=== PATIENT | male | born 1975 | race Caucasian/White ===

== ENCOUNTER 2017-02-17 10:34 | Emergency (ER) | payer MEDICAID, OTHER ==
[~2017-02-17 10:34] MED LIST: BACT800T5 PO; CEPH500C3 PO; DICL75 PO; TRAM50 PO
[2017-02-17 10:37] VITALS: BP 124/75; PULSE 61; RESP 18; TEMP 98.7; O2SAT 98
--- NOTE | 2017-02-17 11:07 | PD ---
Physical Exam Time Seen by Provider: 11:05 Narrative 41 y/o male here with throbbing R-sided h/a which started 5 days ago. Seen by PCP yesterday. Vital signs reviewed. Seen at triage desk. Awaiting bed placement. Data Data Last Documented VS Vital Signs Date Time Temp Pulse Resp B/P Pulse Ox O2 Delivery O2 Flow Rate FiO2 02/17/17 10:37 98.7 61 18 124/75 98 Room Air [facility] Medical Record Reviewed: Yes Supervised Visit with JANES: Juan Cruz Feb 17, 2017 11:07
[2017-02-17] MEDS ORDERED: ADDE20 PO (11:29)
[2017-02-17] MEDS ORDERED: ADDE20XR PO (11:29)
--- NOTE | 2017-02-17 12:09 | PD ---
HPI Chief Complaint: Headache Time Seen by Provider: 11:18 Travel History International Travel<30 days: No Contact w/Intl Traveler<30days: No Traveled to known affect area: No History of Present Illness HPI This patient complains of headache. Location is right posterior headache behind the right ear. It's a throbbing quality. He's had it on and off for 4- 5 days. He is not having any fever and no head injury. No thunderclap onset. Symptoms severity is moderate. He saw his primary physician yesterday and has scheduled for literally 1 hour from now a MRI of the brain and an MRA of the nikol[place] of [place]. Severity is moderate PFSH Past Medical History Cancer: No Cardiovascular Problems: No Diminished Hearing: No Endocrine: No Gastrointestinal Disorders: Yes GERD: Yes Genitourinary: No Immune Disorder: No Musculoskeletal: Yes Neurologic: No Psychiatric: No Reproductive: No Respiratory: No Immunizations Current: Yes Tetanus Vaccination: < 5 Years Past Surgical History Appendectomy: Yes Pacemaker: No Other Surgery: Yes (RIGHT HAND 4TH DIGIT) Social History Alcohol Use: Yes (VERY LITTLE) Tobacco Use: No Substance Use: No Allergies-Medications (Allergen,Severity, Reaction): Coded Allergies: Codeine (Verified Allergy, Mild, Insomnia, 09/18/14) *MDRO Multi-Drug Resistant Organism (Verified Allergy, Unknown, 09/18/14) MRSA Reported Meds & Prescriptions Reported Meds & Active Scripts Active Reported Adderall Xr 24 HR (Amphetamine/Dextroamphetamine) 20 Mg Cap 20 Mg PO DAILY Once daily in the morning. Adderall (Amphetamine-Dextroamphetamine) 20 Mg Tab 20 Mg PO DAILY Avoid late evening doses. Space doses at least 4 to 6 hours if more than once/day dosing. Review of Systems General / Constitutional: No: Fever Eyes: No: Visual changes HENT: Positive: Headaches Cardiovascular: No: Chest Pain or Discomfort Respiratory: No: Shortness of Breath Gastrointestinal: No: Abdominal Pain Genitourinary: No: Dysuria Musculoskeletal: No: Pain Skin: No Rash Neurologic: Positive: Headache, No: Weakness Psychiatric: No: Depression Endocrine: No: Polydipsia Hematologic/Lymphatic: No: Easy Bruising Physical Exam Narrative GENERAL: Well-nourished, well-developed patient in no apparent distress. SKIN: Focused skin assessment reveals no rash and nodules. Skin is Warm and dry. HEAD: Atraumatic. Normocephalic. EYES: Pupils equal and round. No scleral icterus. No injection or drainage. ENT: No nasal bleeding or discharge. Mucous membranes pink and moist. NECK: Trachea midline. No JVD. CARDIOVASCULAR: Regular rate and rhythm. No murmur appreciated. RESPIRATORY: No accessory muscle use. Clear to auscultation. Breath sounds equal bilaterally. GASTROINTESTINAL: Abdomen soft, non-tender, nondistended. Hepatic and splenic margins not palpable. MUSCULOSKELETAL: No obvious deformities. No clubbing. No cyanosis. No edema. NEUROLOGICAL: Awake and alert. No obvious cranial nerve deficits. Motor grossly within normal limits. Normal speech. PSYCHIATRIC: Appropriate mood and affect; insight and judgment normal. Data Data Last Documented VS Vital Signs Date Time Temp Pulse Resp B/P Pulse Ox O2 Delivery O2 Flow Rate FiO2 02/17/17 11:21 Room Air 02/17/17 10:37 98.7 61 18 124/75 98 MDM Medical Decision Making Medical Screen Exam Complete: Yes Emergency Medical Condition: Yes Medical Record Reviewed: Yes Differential Diagnosis Differential diagnosis includes migraine, tension headache, cluster headache, meningitis. Narrative Course I have reviewed the patient's electronic medical record. Patient has normal vital signs and a normal exam and at this point is minimally symptomatic He is going to be discharged to go get his outpatient testing done and follow with his primary physician Diagnosis Primary Impression: Headache Qualified Code: R51 - Acute nonintractable headache, unspecified headache type Patient Instructions: General Instructions Departure Forms: Tests/Procedures Additional Instructions: The patient was advised to follow up with their physician and return if they worsen. Med/Other Pt SpecificInfo: Other Disposition: 01 DISCHARGE HOME Condition: Stable Ranjit Mercado MD Feb 17, 2017 12:09
[2017-02-17] MEDS ORDERED: HYDR-3534 PO (17:03)
== END 2017-02-17 12:43 | disposition home or self-care (01) ==
LOC: NEPC 10:34
DX: R51 Headache (principal); K21.9 Gastro-esophageal reflux disease without esophagitis; Z79.899 Other long term (current) drug therapy
CPT/HCPCS: 99281; 99282

== ENCOUNTER 2017-02-17 16:45 | Emergency (ER) | payer OTHER ==
[~2017-02-17 16:45] MED LIST changes: +ADDE20 PO; +ADDE20XR PO
[2017-02-17 16:48] VITALS: BP 129/65; PULSE 66; RESP 16; TEMP 98.4; O2SAT 98
[2017-02-17] MEDS ORDERED: HYDR-3534 PO (17:03)
--- NOTE | 2017-02-17 18:24 | PD ---
HPI Chief Complaint: Headache Time Seen by Provider: 17:03 Travel History International Travel<30 days: No Contact w/Intl Traveler<30days: No Traveled to known affect area: No History of Present Illness HPI This patient was here earlier today complaining of headache. He went to [facility] and had outpatient studies done. He had an MRA of the brain which was normal. He had an MRI of the brain which revealed a abnormal finding is physician office referred him back to the emergency room. Patient has minor headache in the right posterior region at this time. Symptoms severity is mild. Comes are partially alleviated by pain medication. Duration one week PFSH Past Medical History Hx Anticoagulant Therapy: No Cancer: No Cardiovascular Problems: No Diminished Hearing: No Endocrine: No Gastrointestinal Disorders: Yes GERD: Yes Genitourinary: No Immune Disorder: No Musculoskeletal: Yes Neurologic: No Psychiatric: No Reproductive: No Respiratory: No Immunizations Current: Yes Tetanus Vaccination: < 5 Years Influenza Vaccination: No Past Surgical History Appendectomy: Yes Pacemaker: No Other Surgery: Yes (RIGHT HAND 4TH DIGIT) Social History Alcohol Use: Yes (VERY LITTLE) Tobacco Use: No Substance Use: No Allergies-Medications (Allergen,Severity, Reaction): Coded Allergies: Codeine (Verified Allergy, Mild, Insomnia, 02/17/17) *MDRO Multi-Drug Resistant Organism (Verified Allergy, Unknown, 02/17/17) MRSA Reported Meds & Prescriptions Reported Meds & Active Scripts Active Reported Lortab (Hydrocodone-Acetaminophen) 7.5-325 Mg Tab 1 Tab PO Q4H PRN Adderall Xr 24 HR (Amphetamine/Dextroamphetamine) 20 Mg Cap 20 Mg PO DAILY Once daily in the morning. Review of Systems General / Constitutional: No: Fever Eyes: No: Visual changes HENT: Positive: Headaches Cardiovascular: No: Chest Pain or Discomfort Respiratory: No: Shortness of Breath Gastrointestinal: No: Abdominal Pain Genitourinary: No: Dysuria Musculoskeletal: No: Pain Skin: No Rash Neurologic: Positive: Headache, No: Weakness Psychiatric: No: Depression Endocrine: No: Polydipsia Hematologic/Lymphatic: No: Easy Bruising Physical Exam Narrative GENERAL: Well-nourished, well-developed patient in no apparent distress. SKIN: Focused skin assessment reveals no rash and nodules. Skin is Warm and dry. HEAD: Atraumatic. Normocephalic. EYES: Pupils equal and round. No scleral icterus. No injection or drainage. ENT: No nasal bleeding or discharge. Mucous membranes pink and moist. NECK: Trachea midline. No JVD. CARDIOVASCULAR: Regular rate and rhythm. No murmur appreciated. RESPIRATORY: No accessory muscle use. Clear to auscultation. Breath sounds equal bilaterally. GASTROINTESTINAL: Abdomen soft, non-tender, nondistended. Hepatic and splenic margins not palpable. MUSCULOSKELETAL: No obvious deformities. No clubbing. No cyanosis. No edema. NEUROLOGICAL: Awake and alert. No obvious cranial nerve deficits. Motor grossly within normal limits. Normal speech. PSYCHIATRIC: Appropriate mood and affect; insight and judgment normal. Data Data Last Documented VS Vital Signs Date Time Temp Pulse Resp B/P Pulse Ox O2 Delivery O2 Flow Rate FiO2 02/17/17 16:48 98.4 66 16 129/65 98 Room Air MDM Medical Decision Making Medical Screen Exam Complete: Yes Emergency Medical Condition: Yes Medical Record Reviewed: Yes Differential Diagnosis Differential diagnosis includes migraine, tension headache, cluster headache, meningitis. Narrative Course I have reviewed the patient's electronic medical record. Reviewed his visit from earlier today. I reviewed his outpatient imaging from this afternoon. I discussed his brain MRI in detail with neurosurgeon Dr. Chakraborty who reviewed it as we discussed. He has determined this is an incidental finding and was present at and is not the cause of his headaches. It does not require any intervention or neurosurgery follow-up. He recommends outpatient neurologist evaluation and I' ve discussed that with the patient. Patient reports that he does not need any pain medication. 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
== END 2017-02-17 18:52 | disposition home or self-care (01) ==
LOC: NEPC 16:45
DX: R51 Headache (principal); Q28.3 Other malformations of cerebral vessels; K21.9 Gastro-esophageal reflux disease without esophagitis; Z79.899 Other long term (current) drug therapy
CPT/HCPCS: 99282